=== PATIENT | male | born 1950 | race Caucasian/White ===

== ENCOUNTER → 2023-03-16 13:38 | Outpatient (REF) | payer MEDICARE, OTHER, SELFPAY | LOC: HWRAD 13:38 | PROVIDERS: ATTENDING PHYSICIAN Internal Medicine Critical Care Medicine; FAMILY PHYSICIAN Family Medicine | DX: R06.09 Other forms of dyspnea (principal); I10 Essential (primary) hypertension | CPT/HCPCS: 71275; Q9967 ==

== ENCOUNTER 2023-05-12 18:41 | Inpatient (IN) | payer MEDICARE, OTHER, SELFPAY ==
[2023-05-12 12:46] VITALS: BP 151/81
[2023-05-12 13:00] VITALS: BP 145/84
--- NOTE | 2023-05-12 13:13 | ED.GENMED ---
History of Present Illness
General
Chief Complaint: Post Operative Problem(s)
Source: patient and family
Exam Limitations: none
Time Seen by Provider: 05/12/23 12:57
Travel History
Have you had any contact with someone who has COVID-19?: No
Do you have any symptoms of coronavirus? Fever > 100 degrees, chills, cough, shortness of breath, sore throat, loss of taste or smell, muscle aches, or headache?: No
History of Present Illness
History of Present Illness:
73-year-old male history of bowel resection and liver resection done at [facility]. Discharged 1 week ago. Complaining of ongoing nausea unusual sweatiness lethargy shortness of breath. No fever. No vomiting. Only had 1 diarrhea
bowel movement 1 a day after discharge.
Past History
Past History
ED Past Medical History: HTN, Hypercholesterolemia, NIDDM and Other (Pancreatitis, Ulcers)
ED Past Surgical History: Orthopedic (Back surgery X2 Oct 26 2013 and Dec 21 2013.) and Other (Bowel resection/liver resection)
Social History
Tobacco: Former smoker
Alcohol: None
Personal:
Living: with family
Employment: Employed
Review of Systems
Review of Systems
All Other Systems: Not applicable
Constitutional: Reports fatigue and night sweats; Denies fever
Respiratory: Reports trouble breathing
Cardiac: Reports syncope; Denies chest pain
Phy Exam
Physical Exam
Physical Exam:
GENERAL: Alert and oriented. Slightly slow to answer some questions at times and slightly different answers that his but fully alert.
EYE: Orbits normal.
NECK: Supple. No thyroid palpable
ENT: Pharynx without erythema
CARDIAC: Borderline tachycardic and regular no murmur
LUNGS: No respiratory distress at rest. Dry crackles in both bases l
ABDOMEN: Distended. No obvious unexpected tenderness rebound or guarding. Well-healing vertical incision. Bowel sounds are present but decreased
NEUROLOGICAL: Alert and oriented , grossly non-focal
SKIN: Warm and dry, no rash or lesion, no discoloration, skin intact.
MUSCULOSKELETAL: No edema,no deformity.Good color
PSYCH: Normal and appropriate interaction.
Course
Orders/Labs/Results
Orders:
Orders
05/12/23 12:58
Electrocardiogram (*1) Urgent
Reason for Study: Chest Pain
EKG- Treatment ONCE
05/12/23 12:59
Complete Blood Count/With Diff Urgent
Comprehensive Metabolic Panel Urgent
Lipase Urgent
Comment: ADD ON
05/12/23 13:11
Add On- LAB Urgent
Tests Added?: lipase
05/12/23 13:12
CT Pe/abd/pel W Urgent
Reason For Exam: Short of breath/postop bowel resection/liver surge, order combined
Cardiac Monitoring- Treatment ONCE
IV Insert/Care/Rem.- Treatment PRN
0.9% Sodium Chloride 500 ml [Nss] 500 ml IV BOLUS
Iohexol [Omnipaque] See Protocol PO NOW STA
Pulse Ox/cont/shift [RESP] Stat
Quantity: 1
05/12/23 16:10
Urinalysis Reflex To Culture Urgent
Date Specimen was Collected: 05/12/23
Time Specimen was Collected: 16:09
Urine Microscopic Reflex Cult Urgent
05/12/23 18:20
Admit/Transfer Patient As Directed
Co-Sign Provider:
Level of Care: Inpatient admission
Assign to:: Telemetry
Physician / Group: Kevin/hospitalist
Diagnosis: SOB/OWEN/weakness
Reason for Telemetry: Arrhythmia
Date to Stop Telemetry: 05/15/23
Time to Stop Telemetry: 11:00
Reason for Hospitalization: SOB/OWEN/weakness
Expected length of stay greater than two midnights?: Yes
ELOS- Estimated Length of Stay in days: 3
I certify the patient meets the requirements for IP care: Yes
05/12/23 18:23
Code Status As Directed
Resuscitation Status: Full Code
05/12/23 19:02
Procalcitonin Routine
PCT Algorithmm Indication: Respiratory
Blood Culture Q30M
CLAUDE Source: Blood/Venous
Specimen Description:
Blood Culture Q30M
CLAUDE Source: Blood/Venous
Specimen Description:
05/13/23 08:00
Lidocaine [Lidocaine 4% Patch] 1 patch TOPICAL DAILY
05/15/23 11:00
DC Protocol for Telemetry ONCE
Abnormal Lab Results
05/12/23 05/12/23
12:59 16:10
WBC 13.8 H 10^3/uL
(4.8-10.8)
RBC 3.93 L 10^6/uL
(4.70-6.10)
Hgb 10.7 L g/dL
(13.0-18.0)
Hct 34.1 L %
(39.0-52.0)
MCHC 31.4 L g/dL
(33.0-37.0)
Plt Count 838 H 10^3/uL
(130-400)
Abs Immat Gran (auto) 0.2 H 10^3/uL
(0-0.05)
Absolute Neuts (auto) 11.3 H 10^3/uL
(1.4-6.5)
Absolute Monos (auto) 1.0 H 10^3/uL
(0.1-0.6)
Immature Gran % 1.1 H %
(0-0.5)
Neutrophils % 81.5 H %
(42.2-75.2)
Lymphocytes % 8.9 L %
(20.5-51.1)
Potassium 5.4 H mmol/L
(3.5-5.1)
Chloride 97 L mmol/L
(98-107)
Glucose 214 H mg/dl
(70-99)
AST 115 H U/L
(17-59)
ALT 72 H U/L
(0-50)
Alkaline Phosphatase 196 H U/L
(38-126)
Urine Ketones Trace A
(Negative)
Urine Bilirubin 1+ A
(Negative)
Leukocyte Esterase Rfl Trace A
(Negative)
Urine Glucose Trace A
(Negative)
05/12/23 12:59
05/12/23 12:59
Vital Signs
Initial and Last Documented VS:
Initial Vital Signs
Temp Pulse Resp BP Pulse Ox
97.6 F 103 18 151/81 96
05/12/23 12:46 05/12/23 12:46 05/12/23 12:46 05/12/23 12:46 05/12/23 12:46
Last Documented Vital Signs
Temp Pulse Resp BP Pulse Ox
97.6 F 99 20 143/80 98
05/12/23 12:46 05/12/23 15:45 05/12/23 15:45 05/12/23 15:00 05/12/23 16:07
MDM/Problems Addressed
Differential Diagnosis Includes:
1315.... 73-year-old male recent bowel resection at [facility] along with liver resection for neuroendocrine tumor. He was discharged 1 week ago today. Had been doing okay at home. Had a diarrhea episode the following day.
However no bowel movement since then. Complaining of progressive nausea general weakness increase shortness of breath fatigue episodes of diaphoresis. Presyncopal episode this morning. Patients had talked to the team yesterday who
recommended evaluation.
Large differential including respiratory issue pneumonia pulmonary emboli. Bowel obstruction. Dehydration electrolyte abnormality. Workup in progress. We are trying to contact patient's surgeon to have their involvement.
*Pulse Oximetry
Patient hypoxic: no
*EKG
Interpreted by ED Provider?: Yes
Interpretation: abnormal
Comparison EKG: no changes
Heart Rate: 102
Rate: tachycardiac
Rhythm: sinus
Conley: normal axis
Interval: normal interval
QRS Pattern: normal QRS
Ischemia: non-specific ST changes
*Last Picker Interpretation
Rate: normal
Interpretation: normal
Heart Rate: 98
Rhythm: sinus
*Critical Care Note
Total Time (30-74mins, 75-104mins- exclusive of procedures): Not Applicable
Data Reviewed
Review of Other/Old Records Reveals: Labs, Records, Testing and Discharge Summary
Update Note
Update Note:
Case was discussed with patient surgeon who agreed with management.
ALL studies reviewed with patient's primary surgeon. Comfortable with management here. Nonspecific findings. Small consolidation right base and pleural effusions. Nonspecific fluid collections in the abdomen.
ED Attending Note
-
Portions of this chart may have been created with voice recognition software.� Occasional wrong word or��sound alike� substitutions may have occurred due to the inherent limitations of voice recognition software.
Discharge Plan
Departure
Patient Disposition: Admit
Date of Disposition: 05/12/23
Time of Disposition: 17:37
Presentation/result/management discussed w/ accepting MD/DO: Hospitalist
Discharge Problem:
General weakness/dyspnea, Right basilar consolidation, Bilateral pleural effusions, Anemia, Recent bowel resection/liver resection
Interventions
Interventions:
*Risk Screen - Suicide Last Done: 05/12/23 12:46
*General Assessment Last Done: 05/12/23 12:46
*Neglect/Abuse Screening Last Done: 05/12/23 12:46
ED- Fall Risk Assessment Last Done: 05/12/23 16:23
ED-Skin Assessment Last Done: 05/12/23 16:21
[2023-05-12 13:27] LABS: % Basophils 0.4 % (0-2); % Eosinophils 0.9 % (0-6); % Immature Granulocytes 1.1 % (0-0.5); % Lymphocytes 8.9 % (20.5-51.1); % Monocytes 7.2 % (1.7-9.3); % Neutrophils 81.5 % (42.2-75.2); Absolute Basophils 0.1 10^3/uL (0-0.2); Absolute Eosinophils 0.1 10^3/uL (0-0.7); Absolute Immature Granulocytes 0.2 10^3/uL (0-0.05); Absolute Lymphocytes 1.2 10^3/uL (1.2-3.4); Absolute Neutrophils 11.3 10^3/uL (1.4-6.5); Hematocrit 34.1 % (39.0-52.0); Hemoglobin 10.7 g/dL (13.0-18.0); Mean Corp Hgb Conc. 31.4 g/dL (33.0-37.0); Mean Corpuscular Hgb 27.2 pg (27.0-31.0); Mean Corpuscular Volume 86.8 fL (80.0-94.0); Mean Platelet Volume 9.1 fL (7.4-10.4); Nucleated Red Blood Cells % 0 % (-); Platelet Count 838 10^3/uL (130-400); Red Blood Cell Count 3.93 10^6/uL (4.70-6.10); Red Cell Dist. Width 14.2 % (11.5-14.5); White Blood Cell Count 13.8 10^3/uL (4.8-10.8)
[2023-05-12] MEDS: OMNIPAQUE 50 ML PO (13:35)
[2023-05-12] MEDS: NSS 500 IV (13:38)
[2023-05-12 13:40] LABS: ALT (SGPT) 72 U/L (0-50); AST (SGOT) 115 U/L (17-59); Albumin 3.6 g/dl (3.5-5.0); Alkaline Phosphatase 196 U/L (38-126); Blood Urea Nitrogen 14 mg/dl (9-20); Calcium 9.5 mg/dl (8.4-10.2); Carbon Dioxide 27 mmol/L (22-30); Chloride 97 mmol/L (98-107); Estimated Creatinine Clearance 76 ml/min; Glucose 214 mg/dl (70-99); Potassium 5.4 mmol/L (3.5-5.1); Sodium 138 mmol/L (135-145); Total Bilirubin 0.8 mg/dl (0.2-1.3); eGFR > 60.00
[2023-05-12 14:00] VITALS: BP 155/84
[2023-05-12 14:29] LABS: Lipase 142 U/L (23-300)
[2023-05-12 15:00] VITALS: BP 143/80
[2023-05-12 16:27] LABS: Urine Albumin Trace (Neg - Trace); Urine Bilirubin 1+ (Negative); Urine Character Clear (Clear); Urine Color Yellow; Urine Glucose Trace (Negative); Urine Ketone Trace (Negative); Urine Leukocyte Trace (Negative); Urine Nitrite Negative (Negative); Urine Occult Blood Negative (Negative); Urine Specific Gravity 1.015 (<1.030); Urine Urobilinogen Negative (Neg - 1+)
[2023-05-12 16:41] LABS: Urine Red Blood Cell None Seen /HPF (0-2); Urine Squamous Cell 0-2 /LPF (Few)
--- NOTE | 2023-05-12 17:44 | HPS.HSE ---
Family Physician
-
Family Physician: Angela Alex
Chief Complaint
-
Generalized weakness, shortness of breath/dyspnea on exertion, nausea without vomiting
History of Present Illness
73-year-old male recent history of bowel resection and liver resection done at [facility] (04/27/2022) and was discharged 1 week ago, h/o multiple abdominal surgeries (including recent Ex-lap with small bowel resection by Dr Ball on
03/05/22, open right inguinal hernia repair 2002, laparoscopic left inguinal hernia repair and uvulectomy hernia repair with mesh 2011, status post laparoscopic cholecystectomy with IOC 2021), Diabetes type 2, Essential hypertension, Obesity BMI 30,
BPH, Gout, Lumbar DJD with chronic back pain, Constipation predominant IBS; p/w ongoing nausea, lethargy/weakness and shortness of breath. These symptoms have become worse since recent surgery. Patient also complaining of worsening constipation.
He denies to fever/vomiting/chest pain/abdominal pain.
Medical History
Past Medical History
Past Medical History: Reports Other
Additional Past Medical History:
Obesity
DM-II
Hypertension
Gout
BPH
Chronic Lumbar DDD
Constipation Predominant IBS
Past Surgical History: Reports Other
Additional Past Surgical History:
Umbilical Herniorrhaphy
Cholecystectomy
8 Lumbar Spine Surgeries
Ex-lap with small bowel resection by Dr Ball on 03/05/22
bowel resection and liver resection done at [facility] (04/27/2022)
Social History
Tobacco: Former Smoker (Quit smoking in 1998. Approx 20 pack years total use.)
Alcohol: Occasional
Drug: None
Personal:
Living: With Family
Family History
Family History: Other (Brother: CVA (30s) Sister: CVA)
Allergies / Home Medications
Allergies reflects when Allergies were last updated in [facility].
Home Medications with original date entered in [facility]
Allergy/Medication List:
Allergies
Allergy/AdvReac Type Severity Reaction Status Date / Time
morphine Allergy Unknown Shortness Verified 05/12/23 12:45
of Breath
Home Medications
gabapentin 300 mg capsule 300 mg PO TID 01/08/14
allopurinol 100 mg tablet 100 mg PO DAILY 04/18/19
aspirin 81 mg tablet,delayed release 81 mg PO DAILY 04/18/19
metformin 500 mg tablet 1,000 mg PO BID@0800,1700 04/18/19
metoprolol succinate 50 mg tablet,extended release 24 hr 50 mg PO DAILY 04/18/19
pantoprazole 40 mg tablet,delayed release 40 mg PO BID 04/18/19
simvastatin 20 mg tablet 20 mg PO QPM 04/18/19
tamsulosin 0.4 mg capsule 0.4 mg PO HS 04/18/19
trazodone 150 mg tablet 150 mg PO HS 04/18/19
tramadol 50 mg tablet 50 mg PO BIDPRN PRN moderate pain 05/22/21
glipizide 5 mg tablet 5 mg PO BID #30 tabs 03/12/22
cefpodoxime 200 mg tablet 200 mg PO BID 05/12/23
diphenhydramine 25 mg-acetaminophen 500 mg tablet (Tylenol PM Extra Strength) 1 tab PO HS PRN sleep 05/12/23
docusate sodium 100 mg capsule (Colace) 100 mg PO BIDPRN PRN constipation 05/12/23
enoxaparin 40 mg/0.4 mL subcutaneous syringe (Lovenox) 40 mg SC QPM 05/12/23
Review of Systems
-
Constitutional: Reports Fatigue; Denies Fever
Respiratory: Reports Trouble Breathing (OWEN); Denies Cough
Cardiac: Denies Chest Pain
Abdomen/GI: Reports Nausea; Denies Abdominal Pain or Vomiting
Physical Exam
Vital Signs
Vital Signs
Temp Pulse Resp BP Pulse Ox
36.4 C 99 20 143/80 98
05/12/23 12:46 05/12/23 15:45 05/12/23 15:45 05/12/23 15:00 05/12/23 16:07
Physical Exam
General: Well Developed, Well Nourished, No Apparent Distress, Comfortable and Conversant (Speaking full sentences)
HEENT: NormoCephalic, Moist mucous membranes and Atraumatic; No Oxygen
Respiratory: Clear and Non Labored Respirations; No Wheezes, Crackles or Accessory Resp Muscle Use
Cardiac: S1/S2 and Regular Rhythm; No Murmur or Rub
GI: Soft, Non Tender, Non Distended, Normal Bowel Sounds and Other (Intact surgical incision); No Organomegaly
Rectal: Deferred by Provider
Musculoskeletal: No Clubbing and No Cyanosis
Skin: No Rash
Neuro: Awake
Psych: Calm and Intact Judgment/Insight
Laboratory Results
-
05/12/23 12:59
05/12/23 12:59
Laboratory Results
Total Bilirubin 0.8 mg/dl (0.2-1.3) 05/12/23 12:59
AST 115 U/L (17-59) H 05/12/23 12:59
ALT 72 U/L (0-50) H 05/12/23 12:59
Alkaline Phosphatase 196 U/L (38-126) H 05/12/23 12:59
Lipase 142 U/L (23-300) 05/12/23 12:59
Data Reviewed
-
CT Scan: Report Reviewed by me
Lab Data: Labs Reviewed by me
Impression/Plan
-
73-year-old male recent history of bowel resection and liver resection done at [facility] (04/27/2022) and was discharged 1 week ago, h/o multiple abdominal surgeries (including recent Ex-lap with small bowel resection by Dr Ball on
03/05/22, open right inguinal hernia repair 2002, laparoscopic left inguinal hernia repair and uvulectomy hernia repair with mesh 2011, status post laparoscopic cholecystectomy with IOC 2021), Diabetes type 2, Essential hypertension, Obesity BMI 30,
BPH, Gout, Lumbar DJD with chronic back pain, Constipation predominant IBS; p/w ongoing nausea, lethargy/weakness and shortness of breath. These symptoms have become worse since recent surgery. Patient also complaining of worsening constipation.
He denies to fever/vomiting/chest pain/abdominal pain.
CT AP:
1. Postoperative bibasilar atelectasis and consolidation with right pleural effusion and right greater than left.
2. No CT evidence for pulmonary embolism. No aortic dissection.
3. Small amount of fluid and air beneath the right hemidiaphragm, most consistent with a postoperative fluid collection and postoperative air. The differential includes a small subphrenic abscess. This should be correlated with patient's
laboratory values, previous operative procedure and symptoms.
4. There is a small locule of air and soft tissue which measures 2.4 cm in greatest dimension, closely adhered to the anterior peritoneal cavity just deep to the midline incision, consistent with a small postoperative fluid collection.
5. No additional free intraperitoneal air.
6. Status post resection of previous soft tissue mass in the mesentery seen on the prior CT. Mild small bowel dilatation. No obstruction. Moderate stool in the colon.
A/P:
# generalized weakness, nausea, lethargy and shortness of breath/dyspnea on exertion, suspect related to recent post op vs symptoms relating to underlying neuroendocrine tumor
# Recent bowel resection and liver resection done at [facility] 2 weeks [facility]LL[facility]
# s/p Ex-lap with small bowel resection by Dr Ball on 03/05/22 due to suspected mass.
Path report from 03/05/22 noted: Multifocal well differentiated neuroendocrine tumor Grade 1, invading visceral peritoneum, Multiple mesenteric tumor, Lymphovascular and perineural invasion, Resection margins are negative for tumor.
Patient follows with oncologist at [place]
Check procal to r/o HAP
Noted pt on cefpodoxime MANGLE ROLLER
Check blood Cx per family request
Check echo for shortness of breath/OWEN
Start Incentive spirometry
Zofran PRN for nausea
PT OT eval
# Benign Hypertension
Cont MANGLE ROLLER Toprol
# DM-II
Cont MANGLE ROLLER oral hypoglycemics
Cover with as needed SSI for now.
Recent A1C 7.1%
# Chronic Back Pain
# Lumbar DDD, stable.�
Cont MANGLE ROLLER gabapentin, tramadol as needed
Add lidocaine patch
PT OT eval
# History of Gout
Cont allopurinol
# Elevated LFT, suspect related to recent liver biopsy
hold statin, monitor LFT
DVT Prophylaxis: SQ Lovenox
[2023-05-12 19:01] VITALS: BP 150/74
[2023-05-12 19:42] LABS: Procalcitonin 1.66 ng/ml (0.0-0.25)
[2023-05-12] MEDS: NEURONTIN 300 MG PO (21:38)
[2023-05-12] MEDS: GLUCOTROL 5 MG PO (21:38)
[2023-05-12] MEDS: PROTONIX 40 MG PO (21:38)
[2023-05-12] MEDS: FLOMAX 0.400000000000000022 MG PO (21:38)
[2023-05-12] MEDS: DESYREL 150 MG PO (21:38)
[2023-05-12 21:39] LABS: Glucose - Point of Care 190 mg/dl (70-99)
[2023-05-12] MEDS: COLACE 100 MG PO (22:00)
[2023-05-13] VITALS (10 sets, daily range): BP systolic 135–171; BP diastolic 70–87
[2023-05-13 06:53] LABS: ALT (SGPT) 115 U/L (0-50); AST (SGOT) 176 U/L (17-59); Albumin 3.1 g/dl (3.5-5.0); Alkaline Phosphatase 155 U/L (38-126); Blood Urea Nitrogen 11 mg/dl (9-20); Calcium 8.5 mg/dl (8.4-10.2); Carbon Dioxide 25 mmol/L (22-30); Chloride 102 mmol/L (98-107); Estimated Creatinine Clearance 109 ml/min; Glucose 193 mg/dl (70-99); Magnesium 1.8 mg/dl (1.6-2.3); Potassium 4.8 mmol/L (3.5-5.1); Sodium 133 mmol/L (135-145); Total Bilirubin 0.7 mg/dl (0.2-1.3); Total Protein 6.3 g/dl (6.3-8.2); eGFR > 60.00
[2023-05-13 06:54] LABS: % Basophils 0.6 % (0-2); % Eosinophils 0.6 % (0-6); % Immature Granulocytes 1.2 % (0-0.5); % Lymphocytes 11.3 % (20.5-51.1); % Monocytes 6.6 % (1.7-9.3); % Neutrophils 79.7 % (42.2-75.2); Absolute Basophils 0.1 10^3/uL (0-0.2); Absolute Eosinophils 0.1 10^3/uL (0-0.7); Absolute Immature Granulocytes 0.1 10^3/uL (0-0.05); Absolute Lymphocytes 1.2 10^3/uL (1.2-3.4); Absolute Monocytes 0.7 10^3/uL (0.1-0.6); Absolute Neutrophils 8.7 10^3/uL (1.4-6.5); Hematocrit 29.9 % (39.0-52.0); Hemoglobin 9.8 g/dL (13.0-18.0); Mean Corp Hgb Conc. 32.8 g/dL (33.0-37.0); Mean Corpuscular Hgb 27.9 pg (27.0-31.0); Mean Corpuscular Volume 85.2 fL (80.0-94.0); Nucleated Red Blood Cells % 0.2 % (-); Red Blood Cell Count 3.51 10^6/uL (4.70-6.10); Red Cell Dist. Width 14.4 % (11.5-14.5); White Blood Cell Count 10.9 10^3/uL (4.8-10.8)
--- NOTE | 2023-05-13 07:54 | W.PN.HOSP.TC ---
Today's Communication/Plan
-
see A/P
Assessment / Plan
Assessment / Plan
73-year-old male recent history of bowel resection and liver resection done at [facility] (04/27/2022) and was discharged 1 week ago, h/o multiple abdominal surgeries (including recent Ex-lap with small bowel resection by Dr Ball on
03/05/22, open right inguinal hernia repair 2002, laparoscopic left inguinal hernia repair and uvulectomy hernia repair with mesh 2011, status post laparoscopic cholecystectomy with IOC 2021), Diabetes type 2, Essential hypertension, Obesity BMI 30,
BPH, Gout, Lumbar DJD with chronic back pain, Constipation predominant IBS; p/w ongoing nausea, lethargy/weakness and shortness of breath. These symptoms have become worse since recent surgery. Patient also complaining of worsening constipation.
He denies to fever/vomiting/chest pain/abdominal pain.
CT AP:
1. Postoperative bibasilar atelectasis and consolidation with right pleural effusion and right greater than left.
2. No CT evidence for pulmonary embolism. No aortic dissection.
3. Small amount of fluid and air beneath the right hemidiaphragm, most consistent with a postoperative fluid collection and postoperative air. The differential includes a small subphrenic abscess. This should be correlated with patient's
laboratory values, previous operative procedure and symptoms.
4. There is a small locule of air and soft tissue which measures 2.4 cm in greatest dimension, closely adhered to the anterior peritoneal cavity just deep to the midline incision, consistent with a small postoperative fluid collection.
5. No additional free intraperitoneal air.
6. Status post resection of previous soft tissue mass in the mesentery seen on the prior CT. Mild small bowel dilatation. No obstruction. Moderate stool in the colon.
A/P:
# generalized weakness, nausea, lethargy and shortness of breath/dyspnea on exertion, suspect related to recent post op vs symptoms relating to underlying neuroendocrine tumor vs CAP/HAP
# Recent bowel resection and liver resection done at [facility] [address]
# s/p Ex-lap with small bowel resection by Dr Ball on 03/05/22 due to suspected mass.
Path report from 03/05/22 noted: Multifocal well differentiated neuroendocrine tumor Grade 1, invading visceral peritoneum, Multiple mesenteric tumor, Lymphovascular and perineural invasion, Resection margins are negative for tumor.
Patient [facility] with oncologist at [place]
procal elevated at 1.66, will cover with Zosyn/Vancomycin,
check MRSA screen , COVID/Flu
Follow blood Cx (ordered per family request)
Check echo for shortness of breath/OWEN
Continue Incentive spirometry
Zofran PRN for nausea
PT OT eval
# Recent UTI per pt, was started with cefpodoxime
IV Abx stated above should cover
# Benign Hypertension
Cont [employer] Toprol
# DM-II
Cont [employer] oral hypoglycemics
Cover with as needed SSI for now.
Recent A1C 7.1%
# Chronic Back Pain
# Lumbar DDD, stable.�
Cont [employer] gabapentin, tramadol as needed
Added lidocaine patch
PT OT eval
# History of Gout
Cont allopurinol
# Elevated LFT, suspect related to recent liver biopsy
hold statin, monitor LFT
Check Abd US
DVT Prophylaxis: SQ Lovenox
DW RN
Anticipated Discharge: > 48 hours
Subjective/Interval History
-
Date of Service: May 13, 2023
Objective Data
-
Labs:
Laboratory Results
05/13/23
06:22
WBC 10.9 H
Hgb 9.8 L
Hct 29.9 L
Plt Count Pending
Sodium 133 L
Potassium 4.8
Chloride 102
Carbon Dioxide 25
BUN 11
Creatinine 0.7
Glucose 193 H
Calcium 8.5
Total Bilirubin 0.7
AST 176 H
ALT 115 H
Alkaline Phosphatase 155 H
Vital Signs:
Vital Signs
Temp Pulse Resp BP Pulse Ox
36.5 C 99 18 150/74 94
05/12/23 19:36 05/13/23 00:00 05/13/23 00:00 05/12/23 19:01 05/12/23 19:02
Review of Systems
-
Constitutional: Reports Weakness
Physical Exam
-
General: Well Developed, Well Nourished, No Apparent Distress, Comfortable and Conversant
HEENT: Normocephalic, Atraumatic and Moist Mucous Membranes; Negative Oxygen
Respiratory: Clear to Auscultation and Non Labored Respirations; Negative Accessory Resp Muscle Use
Cardiac: Regular Rhythm and S1/S2; Negative Murmur, Rub or Gallop
GI: Soft, Nontender, Nondistended and Normal Bowel Sounds; Negative Organomegaly
Rectal: Deferred by Provider
Musculoskeletal: No Clubbing, No Cyanosis and No Edema
Skin: Negative Rash
Neuro: Awake
Psych: Calm and Intact Judgement/Insight
Data Reviewed
-
CT Scan: Report Reviewed by me
Labs: Labs Reviewed by me
[2023-05-13 07:55] LABS: Mean Platelet Volume 9.1 fL (7.4-10.4)
[2023-05-13 07:56] LABS: Platelet Count 752 10^3/uL (130-400)
--- NOTE | 2023-05-13 07:58 | PHA.VAN.IN ---
Assessment
- Assessment
Renal Function: Appears similar to baseline
Concomitant Antimicrobials: piperacillin/tazobactam
AUC Dosing Plan
- Dosing Variables
Dosing Weight (kg): 109
Dosing CrCl (ml/min): 93
Vd coefficient (L/kg): 0.7
- Empiric Dosing
Initial / Loading Dose: 1500mg - administration pending
Maintenance Regimen: Vanc 1250mg Q12H starting at 1800
Estimated AUC (mcg*h/mL): 426
Estimated Peak (mcg*h/mL): 26.2
Estimated Trough (mcg/ml): 11.1
Estimated Half Life (H): 8.5
- Monitoring
No levels ordered at this time: consider levels in next few days
MRSA Screen: Ordered per protocol
Pharmacokinetics Vancomycin I
- -
Patient Age: 73
Patient Sex: Male
Vancomycin Day #: 1
Indication: Pulmonary/Respiratory
Requesting Provider: Dr. Brown
Pertinent Antimicrobial Allergies:
no pertinent antibiotic allergies
Height / Weight:
Height 5 ft 9 in
Actual Weight 93.1 kg
Pertinent Past Medical History: BMI ~30, DM
- Vital Signs / Lab Results
Temp Pulse Resp BP Pulse Ox
97.7 F 99 18 150/74 94
05/12/23 19:36 05/13/23 00:00 05/13/23 00:00 05/12/23 19:01 05/12/23 19:02
Lab Results - Hematology
05/12/23 05/13/23
12:59 06:22
WBC 13.8 H 10.9 H
Lab Results - Chemistry
05/12/23 05/13/23
12:59 06:22
BUN 14 11
Creatinine 1.0 0.7
Estimated Creat Clear 76 109
Albumin 3.6 3.1 L
Lab Results - Urine
05/12/23
16:10
Urine Nitrite (Reflex) Negative
Leukocyte Esterase Rfl Trace A
Urine WBC (Reflex) 3-5
Ur Squamous Epith Cells 0-2
[2023-05-13] MEDS: GLUCOTROL 5 MG PO ×2 (09:46→20:26)
[2023-05-13] MEDS: NEURONTIN 300 MG PO ×3 (09:46→20:26)
[2023-05-13] MEDS: ASPIR LOW (ENTERIC COATED) 81 MG PO (09:46)
[2023-05-13] MEDS: TOPROL XL 50 MG PO (09:46)
[2023-05-13] MEDS: PROTONIX 40 MG PO ×2 (09:46→20:26)
[2023-05-13] MEDS: ZYLOPRIM 100 MG PO (09:46)
[2023-05-13] MEDS: GLUCOPHAGE 1000 MG PO ×2 (09:46→16:46)
[2023-05-13] MEDS: LIDOCAINE 4% PATCH 1 PATCH TOPICAL (09:47)
[2023-05-13] MEDS: ZOSYN 50 IV ×4 (09:49→23:23)
[2023-05-13 10:35] LABS: COVID-19 Antigen Negative (Negative)
[2023-05-13] MEDS: DULCOLAX 10 MG PO (12:18)
[2023-05-13] MEDS: SENOKOT-S 1 TABLET PO ×2 (12:18→20:26)
[2023-05-13] MEDS: MIRALAX 17 GRAMS PO (12:19)
[2023-05-13] MEDS: VANCOCIN 300 ML IV (12:19)
[2023-05-13] MEDS: VANCOCIN 300 MG IV (12:19)
[2023-05-13] MEDS: ULTRAM 50 MG PO (16:46)
[2023-05-13] MEDS: LOVENOX 40 MG SC (17:23)
[2023-05-13] MEDS: VANCOCIN 275 MG IV (18:33)
[2023-05-13] MEDS: DESYREL 150 MG PO (20:26)
[2023-05-13] MEDS: FLOMAX 0.400000000000000022 MG PO (20:26)
[2023-05-13] MEDS: BENADRYL 25 MG PO (21:26)
[2023-05-13] MEDS: TYLENOL 500 MG PO (21:26)
[2023-05-13 21:38] LABS: Glucose - Point of Care 207 mg/dl (70-99)
[2023-05-14 04:13] VITALS: BP 147/77
[2023-05-14] MEDS: ZOSYN 50 IV ×2 (05:29→11:02)
[2023-05-14 05:49] LABS: % Basophils 0.4 % (0-2); % Immature Granulocytes 1.7 % (0-0.5); % Lymphocytes 13.8 % (20.5-51.1); % Monocytes 8.1 % (1.7-9.3); Absolute Basophils 0.1 10^3/uL (0-0.2); Absolute Eosinophils 0.1 10^3/uL (0-0.7); Absolute Immature Granulocytes 0.2 10^3/uL (0-0.05); Absolute Lymphocytes 1.5 10^3/uL (1.2-3.4); Absolute Monocytes 0.9 10^3/uL (0.1-0.6); Absolute Neutrophils 8.4 10^3/uL (1.4-6.5); Hematocrit 28.7 % (39.0-52.0); Hemoglobin 9.2 g/dL (13.0-18.0); Mean Corp Hgb Conc. 32.1 g/dL (33.0-37.0); Mean Corpuscular Hgb 27.6 pg (27.0-31.0); Mean Corpuscular Volume 86.2 fL (80.0-94.0); Nucleated Red Blood Cells % 0 % (-); Platelet Count 672 10^3/uL (130-400); Red Blood Cell Count 3.33 10^6/uL (4.70-6.10); Red Cell Dist. Width 14.7 % (11.5-14.5); White Blood Cell Count 11.2 10^3/uL (4.8-10.8)
[2023-05-14] MEDS: VANCOCIN 275 MG IV (05:58)
[2023-05-14 06:17] LABS: ALT (SGPT) 125 U/L (0-50); AST (SGOT) 155 U/L (17-59); Albumin 2.9 g/dl (3.5-5.0); Alkaline Phosphatase 154 U/L (38-126); Blood Urea Nitrogen 11 mg/dl (9-20); Calcium 8.5 mg/dl (8.4-10.2); Carbon Dioxide 22 mmol/L (22-30); Chloride 104 mmol/L (98-107); Estimated Creatinine Clearance 95 ml/min; Glucose 167 mg/dl (70-99); Potassium 4.2 mmol/L (3.5-5.1); Sodium 135 mmol/L (135-145); Total Bilirubin 0.5 mg/dl (0.2-1.3); eGFR > 60.00
[2023-05-14 08:03] VITALS: BP 144/75
[2023-05-14] MEDS: LIDOCAINE 4% PATCH 1 PATCH TOPICAL (08:30)
[2023-05-14] MEDS: ZYLOPRIM 100 MG PO (08:31)
[2023-05-14] MEDS: SENOKOT-S 1 TABLET PO (08:31)
[2023-05-14] MEDS: MIRALAX 17 GRAMS PO (08:31)
[2023-05-14] MEDS: PROTONIX 40 MG PO (08:31)
[2023-05-14] MEDS: ASPIR LOW (ENTERIC COATED) 81 MG PO (08:31)
[2023-05-14] MEDS: NEURONTIN 300 MG PO (08:31)
[2023-05-14] MEDS: GLUCOTROL 5 MG PO (08:31)
[2023-05-14] MEDS: GLUCOPHAGE 1000 MG PO (08:31)
[2023-05-14] MEDS: TOPROL XL 50 MG PO (08:31)
[2023-05-14] MEDS: ULTRAM 50 MG PO (08:33)
[2023-05-14 10:16] VITALS: BP 142/81; PULSE 89; O2SAT 93
--- NOTE | 2023-05-14 11:26 | W.PN.HOSP.TC ---
Addendum entered and electronically signed by Aundrea Brown MD 05/14/23 14:29:
Total DC time 35 minutes
Original Note:
Today's Communication/Plan
-
DC home today
Assessment / Plan
Assessment / Plan
73-year-old male recent history of bowel resection and liver resection done at [facility] (04/27/2022) and was discharged 1 week ago, h/o multiple abdominal surgeries (including recent Ex-lap with small bowel resection by Dr Ball on
03/05/22, open right inguinal hernia repair 2002, laparoscopic left inguinal hernia repair and uvulectomy hernia repair with mesh 2011, status post laparoscopic cholecystectomy with IOC 2021), Diabetes type 2, Essential hypertension, Obesity BMI 30,
BPH, Gout, Lumbar DJD with chronic back pain, Constipation predominant IBS; p/w ongoing nausea, lethargy/weakness and shortness of breath. These symptoms have become worse since recent surgery. Patient also complaining of worsening constipation.
He denies to fever/vomiting/chest pain/abdominal pain.
CT AP:
1. Postoperative bibasilar atelectasis and consolidation with right pleural effusion and right greater than left.
2. No CT evidence for pulmonary embolism. No aortic dissection.
3. Small amount of fluid and air beneath the right hemidiaphragm, most consistent with a postoperative fluid collection and postoperative air. The differential includes a small subphrenic abscess. This should be correlated with patient's
laboratory values, previous operative procedure and symptoms.
4. There is a small locule of air and soft tissue which measures 2.4 cm in greatest dimension, closely adhered to the anterior peritoneal cavity just deep to the midline incision, consistent with a small postoperative fluid collection.
5. No additional free intraperitoneal air.
6. Status post resection of previous soft tissue mass in the mesentery seen on the prior CT. Mild small bowel dilatation. No obstruction. Moderate stool in the colon.
A/P:
# generalized weakness, nausea, lethargy and shortness of breath/dyspnea on exertion, likely due to CAP and related to underlying neuroendocrine tumor
# Recent bowel resection and liver resection done at [facility] 2 weeks GIMP TACKER
# s/p Ex-lap with small bowel resection by Dr Ball on 03/05/22 due to suspected mass.
Path report from 03/05/22 noted: Multifocal well differentiated neuroendocrine tumor Grade 1, invading visceral peritoneum, Multiple mesenteric tumor, Lymphovascular and perineural invasion, Resection margins are negative for tumor.
Patient follows with oncologist at [facility]
procal elevated at 1.66
MRSA screen negative , COVID/Flu neg
cont Zosyn, can DC with Cefdinir/azithromycin for 5 more days
DC further Vancomycin
Echo was checked for SOB/OWEN, echo was unrevealing: EF 68%. Normal diastolic function. Compared to the previous echo 11/05/22, there is no significant change.
Continue Incentive spirometry
Zofran PRN for nausea
PT OT eval: no need
# Recent UTI per pt, was on cefpodoxime
Abx stated above should cover
# Benign Hypertension
Cont GIMP TACKER Toprol
# DM-II
Cont GIMP TACKER oral hypoglycemics
Cover with as needed SSI for now.
Recent A1C 7.1%
# Chronic Back Pain
# Lumbar DDD, stable.�
Cont GIMP TACKER gabapentin, tramadol as needed
Added lidocaine patch
PT OT eval
# History of Gout
Cont allopurinol
# Elevated LFT, suspect related to recent liver biopsy
hold statin
Cont to monitor LFT outpt with result to PCP
Abd US unrevealing: Diffuse fatty infiltration of the liver with minimal perihepatic ascites. Cholecystectomy.
DVT Prophylaxis: SQ Lovenox
DW at bedside
Anticipated Discharge: Today
Subjective/Interval History
-
Date of Service: May 14, 2023
Objective Data
-
Labs:
Laboratory Results
05/14/23
05:27
WBC 11.2 H
Hgb 9.2 L
Hct 28.7 L
Plt Count 672 H
Sodium 135
Potassium 4.2
Chloride 104
Carbon Dioxide 22
BUN 11
Creatinine 0.8
Glucose 167 H
Calcium 8.5
Total Bilirubin 0.5
AST 155 H
ALT 125 H
Alkaline Phosphatase 154 H
Vital Signs:
Vital Signs
Temp Pulse Resp BP Pulse Ox
36.6 C 88 16 144/75 93
05/14/23 08:03 05/14/23 08:03 05/14/23 08:03 05/14/23 08:03 05/14/23 08:03
I&O
05/13/23 05/14/23 05/15/23
06:59 06:59 06:59
Intake Total 50 / 50
Output Total 125 / 125
Balance -75 / -75
Review of Systems
-
All other systems: Reviewed and negative
Respiratory: Denies Cough
Physical Exam
-
General: Well Developed, Well Nourished, No Apparent Distress, Comfortable and Conversant
HEENT: Normocephalic, Atraumatic and Moist Mucous Membranes; Negative Oxygen
Respiratory: Clear to Auscultation and Non Labored Respirations; Negative Accessory Resp Muscle Use
Cardiac: Regular Rhythm and S1/S2; Negative Murmur, Rub or Gallop
GI: Soft, Nontender, Nondistended and Normal Bowel Sounds; Negative Organomegaly
Rectal: Deferred by Provider
Musculoskeletal: No Clubbing, No Cyanosis and No Edema
Skin: Negative Rash
Neuro: Awake
Psych: Calm and Intact Judgement/Insight
Data Reviewed
-
Labs: Labs Reviewed by me
[2023-05-14 12:00] VITALS: BP 140/83
--- NOTE | 2023-05-14 14:09 | W.DCSUMMARY ---
Discharge Summary
Discharge Data
Date of Admission: 05/12/23
Date of Discharge: 05/14/23
-
Pending Results: No
Hospital Course
Principal Diagnosis:
Generalized weakness with shortness of breath/dyspnea on exertion, likely due to community-acquired pneumonia and may be related to underlying neuroendocrine tumor
Elevated liver enzymes, suspect related to recent liver biopsy
Chronic Diagnoses:�
Recent bowel resection and liver resection at [facility] 2 weeks prior to this admission
History of Ex-lap with small bowel resection by Dr Ball on 03/05/22 due to suspected mass.
Recent urinary tract infection per patient, he was started with cefpodoxime (only had 2 doses left at the time of admission)
Benign Hypertension
Kml-aayfcoe-adtajniuv diabetes
Chronic Back Pain
Lumbar degenerative disc disease, stable.�
History of Gout, on allopurinol
Irritable bowel syndrome with predominant constipation
Consultations:�
None
Procedures:�
None
Clinical course:�
This is a 73-year-old male with past medical history as stated above, who presented with weakness, shortness of breath and dyspnea on exertion.
Of note, he recently had bowel resection and liver resection at [facility] (04/27/2022) and was discharged 1 week ago prior to admission.
Problem 1:
Generalized weakness with shortness of breath/dyspnea on exertion, likely due to community-acquired pneumonia and may be related to underlying neuroendocrine tumor.
His procal level was elevated at 1.66.
His MRSA screen, and COVID/Flu tests were negative.
He was treated with Zosyn (received 2 days) while in the hospital, and was discharged with Cefdinir/azithromycin for 5 more days.
An echocardiogram was obtained due to his complaint of shortness of breath/dyspnea on exertion.
His echo was unrevealing: EF 68%. Normal diastolic function. Compared to the previous echo 11/05/22, there is no significant change.
He can continue to follow-up with his oncologist at [facility].
Problem 2:
Elevated LFT, suspect related to recent liver biopsy.
For the time being, he can hold his simvastatin.
He can check outpatient LFT in 1 week, with result to his PCP.
His abdominal ultrasound was unrevealing: noted diffuse fatty infiltration of the liver with minimal perihepatic ascites. Cholecystectomy.
As for the rest of his medical problems, they were stable during his hospital stay.
Discharge Plan
-
Patient Disposition: Home (Routine Discharge)
Discharge Diagnosis/Procedures: community acquired pneumonia; Recent bowel resection and liver resection at [facility] 2 weeks; underlying neuroendocrine tumor Grade 1 invading visceral peritoneum
Condition: Fair
Diet: As tolerated
Activity: As tolerated
Driving Restrictions: As prior to admission
Blood Work: CMP in 1 week, result to your PCP
Referrals:
Angela Alex, DO [Family Provider] - in less than 1 week
Additional Discharge Medication Instructions: Take Cefdinir and Azithromycin for 5 days.
Hold simvastatin for now until outpatient LFT normalizes (defer to your PCP).
Do NOT exceed 2g of Tylenol in 24 hours.
Stop cefpodoxime
Prescriptions:
New
lidocaine 4 % Adhesive Patch,Medicated
1 patch topical DAILY Qty: 30 0RF
cefdinir 300 mg capsule
300 mg PO Q12H 5 Days Qty: 10 0RF
azithromycin 500 mg tablet
500 mg PO DAILY 5 Days Qty: 5 0RF
Continued
gabapentin 300 MG capsule
300 mg PO TID
metformin 500 MG tablet
1,000 mg PO BID@0800,1700
metoprolol succinate 50 MG tablet extended release 24 hr
50 mg PO DAILY
allopurinol 100 MG tablet
100 mg PO DAILY
aspirin 81 MG tablet,delayed release (DR/EC)
81 mg PO DAILY
tamsulosin 0.4 MG capsule
0.4 mg PO HS
pantoprazole 40 MG tablet,delayed release (DR/EC)
40 mg PO BID
trazodone 150 MG tablet
150 mg PO HS
tramadol 50 MG tablet
50 mg PO BIDPRN PRN (Reason: moderate pain)
Patient Comments:
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
glipizide 5 MG tablet
5 mg PO BID Qty: 30 0RF
Rx Instructions:
Resume after metformin at 5 mg daily.
Increase to 5 mg BID if elevated blood glucose above 200
docusate sodium [Colace] 100 mg Capsule
100 mg PO BIDPRN PRN (Reason: constipation)
Tylenol PM Extra Strength 25-500 mg Tablet
1 tab PO HS PRN (Reason: sleep)
enoxaparin [Lovenox] 40 mg/0.4 mL Syringe
40 mg SC QPM
Held
simvastatin 20 MG tablet
20 mg PO QPM
Hold Instructions: Resume on 05/20/23. until outpatient LFT result
Discontinued
cefpodoxime 200 mg Tablet
200 mg PO BID
Patient Comments:
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
Discharge Orders:
Discharge Patient (As Directed); Ordered 05/14/23
Ordered By: Aundrea Brown
Discharge Date and Time
Print Language: OCCITAN
--- NOTE | 2023-05-14 15:26 | CM ---
CM reviewed chart, patient discharged before initial assessment and IMM given. Per PT, no skilled need. Patient discharged home no needs.
Plan; home no needs.
== END 2023-05-14 14:55 | disposition home or self-care (01) | DRG 194 ==
LOC: 4 WEST ACU 18:41
PROVIDERS: Emergency Medicine; ADMITTING PHYSICIAN Internal Medicine; EMERGENCY PHYSICIAN Emergency Medicine; FAMILY PHYSICIAN Family Medicine
DX: J18.9 Pneumonia, unspecified organism (principal); J90 Pleural effusion, not elsewhere classified; J98.11 Atelectasis; R11.0 Nausea; E11.9 Type 2 diabetes mellitus without complications; E78.00 Pure hypercholesterolemia, unspecified; I10 Essential (primary) hypertension; D64.9 Anemia, unspecified; E66.9 Obesity, unspecified; N40.0 Benign prostatic hyperplasia without lower urinary tract symptoms; M10.9 Gout, unspecified; M47.816 Spondylosis without myelopathy or radiculopathy, lumbar region; D3A.8 Other benign neuroendocrine tumors; G89.29 Other chronic pain; K59.00 Constipation, unspecified; K76.0 Fatty (change of) liver, not elsewhere classified; R79.89 Other specified abnormal findings of blood chemistry; M51.36 Other intervertebral disc degeneration, lumbar region; K58.1 Irritable bowel syndrome with constipation; Z87.891 Personal history of nicotine dependence; Z90.49 Acquired absence of other specified parts of digestive tract; Z68.30 Body mass index [BMI] 30.0-30.9, adult; Z82.3 Family history of stroke; Z88.5 Allergy status to narcotic agent; Z79.82 Long term (current) use of aspirin; Z79.84 Long term (current) use of oral hypoglycemic drugs; Z87.440 Personal history of urinary (tract) infections
CPT/HCPCS: 71275; 74177; 76700; 80053; 81003; 81015; 82962; 83690; 83735; 84145; 85025; 87040; 87502; 87641; 87811; 93005; 93306; 97162; 99285; Q9967

== ENCOUNTER → 2023-05-20 13:45 | Outpatient (REF) | payer MEDICARE, OTHER, SELFPAY | LOC: REG 13:45 | PROVIDERS: ATTENDING PHYSICIAN Family Medicine | DX: J18.9 Pneumonia, unspecified organism (principal); E11.9 Type 2 diabetes mellitus without complications; E11.69 Type 2 diabetes mellitus with other specified complication | CPT/HCPCS: 71046 ==

== ENCOUNTER → 2023-08-17 07:29 | Outpatient (REF) | payer MEDICARE, OTHER, SELFPAY | LOC: HWRAD 07:29 | PROVIDERS: FAMILY PHYSICIAN Family Medicine | DX: J94.8 Other specified pleural conditions (principal); J86.9 Pyothorax without fistula | CPT/HCPCS: 71046; 71250 ==